=== PATIENT | female | born 1985 | race Caucasian/White ===

== ENCOUNTER 2020-06-09 12:06 | Day surgery (SDC) | payer OTHER ==
[~2020-06-09] VITALS: Ht 165.1 cm; Wt 188.3 kg
[~2020-06-09 12:06] MED LIST: BUPIVACAINE/PF 0.5% ONE; EPINEPHRINE 1 MG/ML, 1ML ONE; LOSA50TA14 PO
[2020-06-09] MEDS ORDERED: MIDAZOLAM 1 MG/ML, 2ML ONE (12:34)
[2020-06-09] MEDS ORDERED: FENTANYL PF 250 MCG/5ML ONE ×2 (12:34→14:15)
[2020-06-09 12:44] VITALS: BP 183/84
[2020-06-09] MEDS ORDERED: CHLORHEXIDINE 15 ML UDC ONE (12:47)
[2020-06-09 12:51] LABS: HCG UR SG 1.014 (1.003-1.030)
[2020-06-09] MEDS ORDERED: ACETAMINOPHEN 325 MG TABLET PO PRN (13:00)
[2020-06-09] MEDS ORDERED: EPHEDRINE 50 MG/ML, 1ML IVPush PRN (13:00)
[2020-06-09] MEDS ORDERED: CHLORHEXIDINE 15 ML UDC MM ONE (13:00)
[2020-06-09] MEDS ORDERED: HYDROmorphone 1 MG/ML, 1ML INJ IVPush PRN (13:00)
[2020-06-09] MEDS ORDERED: LABETALOL 5MG/ML, 20ML IV PRN (13:00)
[2020-06-09] MEDS ORDERED: PROMETHAZINE 25 MG/ML, 1ML IVPush PRN (13:00)
[2020-06-09] MEDS ORDERED: FENTANYL PF 100 MCG/2ML IV PRN (13:00)
[2020-06-09] MEDS ORDERED: LACTATED RINGERS 1,000 ML IV SCH ×2 (13:00)
[2020-06-09] MEDS ORDERED: METHOCARBAMOL 1,000 MG in DEXTROSE 5% 100 ML IV PRN (13:00)
[2020-06-09] MEDS ORDERED: LORazepam 2 MG/ML, 1ML IVPush PRN (13:00)
[2020-06-09] MEDS ORDERED: ONDANSETRON 2MG/ML, 2ML IVPush PRN (13:00)
[2020-06-09] MEDS ORDERED: OXYcodone 5 MG/5 ML ORAL.SOL UDC PO PRN ×2 (13:00→14:30)
[2020-06-09] MEDS ORDERED: SUGAMMADEX 200 MG/2 ML IVPush ONE ×2 (14:11)
[2020-06-09] MEDS ORDERED: OXYC5TAB2 PO (14:19)
[2020-06-09] MEDS ORDERED: ONDA4TAB7 PO (14:21)
[2020-06-09] MEDS ORDERED: ONDANSETRON 2MG/ML, 2ML ONE ×2 (14:41→16:01)
[2020-06-09] MEDS ORDERED: FENTANYL PF 100 MCG/2ML ONE (14:42)
[2020-06-09] MEDS ORDERED: PROMETHAZINE 25 MG/ML, 1ML ONE (15:06)
[2020-06-09] MEDS ORDERED: SUCCINYLCHOLINE 20 MG/ML, 10ML ONE (16:01)
[2020-06-09] MEDS ORDERED: PROPOFOL 10 MG/ML, 20ML ONE (16:01)
[2020-06-09] MEDS ORDERED: KETOROLAC 30 MG/1 ML ONE (16:01)
[2020-06-09] MEDS ORDERED: CEFAZOLIN 1,000 MG ONE (16:01)
[2020-06-09] MEDS ORDERED: METOCLOPRAMIDE 5 MG/ML, 2ML ONE (16:01)
[2020-06-09] MEDS ORDERED: ROCURONIUM 10MG/ML,5ML ONE (16:01)
[2020-06-09] MEDS ORDERED: DEXAMETHASONE 4 MG/ML, 1ML ONE (16:01)
== END 2020-06-09 16:55 | disposition home or self-care (01) ==
LOC: OUT 12:06 → EDSTATUS 13:30 → OUT 16:55
PROVIDERS: ATTEND Surgery
DX: K42.0 Umbilical hernia with obstruction, without gangrene (principal); I10 Essential (primary) hypertension; E66.01 Morbid (severe) obesity due to excess calories; Z88.2 Allergy status to sulfonamides; Z88.8 Allergy status to other drugs, medicaments and biological substances; Z79.899 Other long term (current) drug therapy; Z98.890 Other specified postprocedural states; Z68.44 Body mass index [BMI] 60.0-69.9, adult; Z88.1 Allergy status to other antibiotic agents
CPT/HCPCS: 49653; 81025; C1781; J0171; J0330; J0690; J1100; J1885; J2250; J2405; J2550; J2704; J2765; J2800; J3010; J7120; S2900